=== PATIENT | male | born 1985 | race Caucasian/White ===

== ENCOUNTER 2024-06-05 19:12 | Emergency (ER) | payer MEDICAID ==
[~2024-06-05] VITALS: Ht 175.3 cm; Wt 97.7 kg
[2024-06-05 19:23] VITALS: BP 141/85; PULSE 60; RESP 16; TEMP 98.7
[2024-06-05] MEDS: TraMADol HCL 50 MG TABLET PO ONE (22:48)
[2024-06-05] MEDS: KETOROLAC TROMETHAMINE 30 MG/ML VIAL IM ONE (22:49)
[2024-06-05] MEDS ORDERED: CYCL-448 PO (23:37)
== END 2024-06-06 00:30 | disposition home or self-care (01) ==
LOC: EMS 19:14
DX: M54.2 Cervicalgia (principal); F17.210 Nicotine dependence, cigarettes, uncomplicated; F15.90 Other stimulant use, unspecified, uncomplicated; Z98.890 Other specified postprocedural states
CPT/HCPCS: 99283; 72040; 96372; J1885